=== PATIENT | male | born 1945 | race Caucasian/White ===

== ENCOUNTER 2021-06-29 09:27 | Outpatient (CLI) | payer MEDICARE | END 2021-06-29 09:28 | disposition home or self-care (01) | LOC: CSHCT 09:27 | PROVIDERS: ATTEND Nurse Practitioner Family | DX: R91.1 Solitary pulmonary nodule (principal); R91.8 Other nonspecific abnormal finding of lung field; J98.4 Other disorders of lung | CPT/HCPCS: 71250 ==